=== PATIENT | female | born 1950 | race Caucasian/White ===

== ENCOUNTER 2022-04-02 09:47 | Emergency (ER) | payer BC, OTHER ==
[2022-04-02 09:58] VITALS: TEMP 97.2; BMI 32.9
[2022-04-02] MEDS ORDERED: IBUPROFEN 400 MG TABLET (FP) PO ONE ×2 (10:03→10:10)
[2022-04-02] MEDS ORDERED: ACETAMINOPHEN 325 MG TABLET (FP) PO ONE (10:03)
[2022-04-02] MEDS ORDERED: ACETAMINOPHEN 325 MG TABLET (FP) ONE (10:10)
[2022-04-02 10:20] VITALS: BP 156/93; PULSE 68
== END 2022-04-02 11:52 | disposition home or self-care (01) ==
LOC: JER 09:47
DX: M79.605 Pain in left leg (principal)
CPT/HCPCS: 72170-TC-FY; 73562-TC-RT-FY; 73590-TC-RT-FY; 99284-25

== ENCOUNTER 2022-10-02 18:42 | Emergency (ER) | payer OTHER ==
[2022-10-02 20:03] VITALS: TEMP 98.1; BMI 33.0
[2022-10-02] MEDS ORDERED: ACETAMINOPHEN 500 MG TABLET (FP) PO ONE (21:06)
[2022-10-02] MEDS ORDERED: ATENOLOL 50 MG TABLET (FP) PO ONE (21:06)
[2022-10-02] MEDS ORDERED: ACETAMINOPHEN 325 MG TABLET (FP) ONE (21:40)
[2022-10-02] MEDS ORDERED: ATENOLOL 50 MG TABLET (FP) ONE (21:40)
[2022-10-02 22:27] LABS: BASO % 0.7 % (0-2.0); EOS % 1.4 % (0-4.5); HEMATOCRIT 49.4 % (32.4-45.2); HEMOGLOBIN 16.1 GM/dL (10.7-15.3); LYMPH % 12.6 % (8-40); MCH 28.6 pg (25.7-33.7); MCHC 32.5 g/dl (32.0-36.0); MEAN PLT VOLUME 7.4 fl (7.5-11.1); MONO % 5.7 % (3.8-10.2); NEUT % 79.6 % (42.8-82.8); PLATELET COUNT 395 10^3/uL (134-434); RBC 5.61 M/mm3 (3.60-5.2); RDW 14.8 % (11.6-15.6); WHITE BLOOD COUNT 11.2 K/mm3 (4.0-10.0)
[2022-10-02 22:48] LABS: CALCIUM 9.8 mg/dL (8.5-10.1)
[2022-10-02 22:49] LABS: ALBUMIN 3.6 g/dl (3.4-5.0); BLOOD UREA NITROGEN 17.5 mg/dL (7-18)
[2022-10-02 22:52] LABS: CREATININE 1.7 mg/dL (0.55-1.3)
[2022-10-02 22:54] LABS: BILIRUBIN,TOTAL 0.6 mg/dL (0.2-1); TOT PROT 7.1 g/dl (6.4-8.2)
[2022-10-02] MEDS ORDERED: AZITHROMYCIN 250 MG TABLET PO ONE (22:57)
[2022-10-02] MEDS ORDERED: NEOMYCIN/POLYMYXN/HC OTIC SOLUTION 10 ML BOTTLE ONE (22:58)
[2022-10-02] MEDS ORDERED: AZITHROMYCIN 250 MG TABLET ONE (23:01)
[2022-10-02 23:13] VITALS: BP 175/120; PULSE 85; RESP 20
[2022-10-03] MEDS ORDERED: NEOMYCIN/POLYMYXN/HC OTIC SOLUTION 10 ML BOTTLE AS ONE (22:58)
== END 2022-10-02 23:19 | disposition home or self-care (01) ==
LOC: JERFT 18:42 → JER 18:42 → JERFT 23:19
DX: H60.92 Unspecified otitis externa, left ear (principal); H66.92 Otitis media, unspecified, left ear; I10 Essential (primary) hypertension
CPT/HCPCS: 0241U-QW; 36415; 70480-TC; 70486-TC; 71046-TC-FY; 80053; 85025; 99284-25

== ENCOUNTER 2023-06-22 04:14 | Inpatient (IN) | payer OTHER ==
[2023-06-21 11:52] VITALS: BMI 34.4
[2023-06-22 06:58] LABS: INR 0.99 (0.83-1.09); PROTHROMBIN TIME (PATIENT) 11.5 SEC (9.7-13.0)
[2023-06-22] MEDS ORDERED: BUPIVACAINE HCL/PF 0.5% (5MG/ML) 10 ML VIAL ONE (08:07)
[2023-06-22] MEDS ORDERED: LIDOCAINE HCL/PF 2% SDV 5ML VIAL ONE (09:00)
[2023-06-22] MEDS ORDERED: ROCURONIUM BROMIDE 50 MG/5 ML SYRINGE ONE (09:00)
[2023-06-22] MEDS ORDERED: PROPOFOL 20 ML ONE (09:00)
[2023-06-22] MEDS ORDERED: ceFAZolin SODIUM 1 GM VIAL ONE (09:00)
[2023-06-22] MEDS ORDERED: MIDAZOLAM HCL 2 MG/2 ML SINGLE DOSE VIAL ONE (09:01)
[2023-06-22] MEDS ORDERED: ERTAPENEM SODIUM 1 GM VIAL ONE (09:38)
[2023-06-22] MEDS ORDERED: cefOXitin SODIUM 1 GM VIAL (RESTRICTED TO ID) IVPB ONE (09:42)
[2023-06-22] MEDS ORDERED: BUPIVACAINE HCL/PF 0.5% (5MG/ML) 10 ML VIAL IJ ONE ×2 (10:00)
[2023-06-22] MEDS ORDERED: GLYCOPYRROLATE 0.2 MG/1 ML VIAL ONE ×2 (10:03→10:30)
[2023-06-22] MEDS ORDERED: NEOSTIGMINE METHYLSULFATE 0.5 MG/1 ML - 10 ML MDV ONE (10:30)
[2023-06-22] MEDS ORDERED: ACETAMINOPHEN 325 MG TABLET (FP) PO PRN (14:15)
[2023-06-22] MEDS: clonazePAM 0.5 MG TABLET PO PRN ×2 (15:40→21:39)
[2023-06-22] MEDS: ATORVASTATIN CA 20 MG TABLET (FP) PO SCH (21:39)
[2023-06-22] MEDS: DULoxetine HCL 30 MG CAPSULE.DR PO SCH ×2 (21:39→21:43)
[2023-06-22] MEDS ORDERED: ATENOLOL 50 MG TABLET (FP) PO SCH (22:00)
[2023-06-23] MEDS: LEVOTHYROXINE NA 112 MCG TABLET (FP) PO SCH (06:42)
[2023-06-23] MEDS: DULoxetine HCL 30 MG CAPSULE.DR PO SCH ×2 (09:49→21:18)
[2023-06-23] MEDS: LOSARTAN POTASSIUM 50 MG TABLET PO SCH (09:49)
[2023-06-23] MEDS: ASPIRIN 81 MG CHEWABLE TABLETS PO SCH (09:49)
[2023-06-23] MEDS: clonazePAM 0.5 MG TABLET PO PRN (21:17)
[2023-06-23] MEDS: ATORVASTATIN CA 20 MG TABLET (FP) PO SCH (21:17)
[2023-06-24] MEDS: LEVOTHYROXINE NA 112 MCG TABLET (FP) PO SCH (06:07)
[2023-06-24] MEDS: clonazePAM 0.5 MG TABLET PO PRN (09:14)
[2023-06-24] MEDS: ASPIRIN 81 MG CHEWABLE TABLETS PO SCH ×2 (09:14→09:16)
[2023-06-24] MEDS: DULoxetine HCL 30 MG CAPSULE.DR PO SCH ×2 (09:14→21:24)
[2023-06-24] MEDS: LOSARTAN POTASSIUM 50 MG TABLET PO SCH (09:14)
[2023-06-24] MEDS: ATORVASTATIN CA 20 MG TABLET (FP) PO SCH (21:24)
[2023-06-25] MEDS: LEVOTHYROXINE NA 112 MCG TABLET (FP) PO SCH (06:00)
[2023-06-25 08:41] LABS: BASO % 0.8 % (0-2.0); EOS % 2.2 % (0-4.5); HEMATOCRIT 47.7 % (32.4-45.2); LYMPH % 22.7 % (8-40); MCH 29.5 pg (25.7-33.7); MCHC 33.4 g/dl (32.0-36.0); MEAN CELL VOLUME 88.1 fl (80-96); MEAN PLT VOLUME 7.5 fl (7.5-11.1); MONO % 7.6 % (3.8-10.2); NEUT % 66.7 % (42.8-82.8); PLATELET COUNT 380 10^3/uL (134-434); RBC 5.42 M/mm3 (3.60-5.2); RDW 14.8 % (11.6-15.6); WHITE BLOOD COUNT 5.6 K/mm3 (4.0-10.0)
[2023-06-25] MEDS: clonazePAM 0.5 MG TABLET PO PRN (08:58)
[2023-06-25] MEDS: DULoxetine HCL 30 MG CAPSULE.DR PO SCH ×2 (09:00→21:17)
[2023-06-25] MEDS: ASPIRIN 81 MG CHEWABLE TABLETS PO SCH (09:01)
[2023-06-25] MEDS: LOSARTAN POTASSIUM 50 MG TABLET PO SCH (09:01)
[2023-06-25 09:11] LABS: POTASSIUM 4.7 mmol/L (3.5-5.1)
[2023-06-25 09:14] LABS: CALCIUM 9.3 mg/dL (8.5-10.1)
[2023-06-25 09:16] LABS: ALBUMIN 3.4 g/dl (3.4-5.0); BLOOD UREA NITROGEN 27.4 mg/dL (7-18)
[2023-06-25 09:18] LABS: CREATININE 1.5 mg/dL (0.55-1.3)
[2023-06-25 09:19] LABS: BILIRUBIN,TOTAL 0.5 mg/dL (0.2-1)
[2023-06-25 09:20] LABS: TOT PROT 6.4 g/dl (6.4-8.2)
[2023-06-25] MEDS ORDERED: PEG 3350/NA SULF BICARB CL/KCL 4000 ML SOLN.RECON PO ONE (15:47)
[2023-06-25] MEDS: metroNIDAZOLE 250 MG TABLET PO SCH ×2 (16:27→21:18)
[2023-06-25] MEDS ORDERED: clonazePAM 0.5 MG TABLET PO PRN (18:39)
[2023-06-25] MEDS: ATORVASTATIN CA 20 MG TABLET (FP) PO SCH (21:18)
[2023-06-26] MEDS: NEOMYCIN SO4 500 MG TABLET PO SCH ×3 (05:13→10:45)
[2023-06-26] MEDS: metroNIDAZOLE 250 MG TABLET PO SCH ×2 (05:14→13:56)
[2023-06-26] MEDS: LOSARTAN POTASSIUM 50 MG TABLET PO SCH ×2 (05:42→09:14)
[2023-06-26] MEDS: LEVOTHYROXINE NA 112 MCG TABLET (FP) PO SCH (06:39)
[2023-06-26] MEDS ORDERED: SODIUM PHOSPHATE/NA BIPHOS 133 ML ENEMA RC ONE (06:50)
[2023-06-26] MEDS ORDERED: hydrALAZINE HCL 20 MG/ML VIAL IVPUSH PRN ×2 (07:07→20:20)
[2023-06-26] MEDS ORDERED: amLODIPine BESYLATE 5 MG TABLET (FP) PO ONE (08:15)
[2023-06-26] MEDS: ASPIRIN 81 MG CHEWABLE TABLETS PO SCH (09:14)
[2023-06-26] MEDS: DULoxetine HCL 30 MG CAPSULE.DR PO SCH ×2 (09:14→23:26)
[2023-06-26] MEDS ORDERED: cefOXitin SODIUM 2 GM VIAL (RESTRICTED TO ID) IVPB ONE ×3 (14:48→17:33)
[2023-06-26] MEDS ORDERED: BUPIVACAINE HCL/PF 0.25% (2.5MG/ML) 10 ML VIAL IJ ONE ×2 (15:24)
[2023-06-26] MEDS ORDERED: CEFOXITIN SODIUM 2 GM IVPB ONE (16:49)
[2023-06-26] MEDS ORDERED: INDOCYANINE GREEN 25 MG/10 ML VIAL IVPUSH ONE (16:49)
[2023-06-26] MEDS ORDERED: ESMOLOL HCL 100,000 MCG/10 ML VIAL ONE (19:08)
[2023-06-26] MEDS ORDERED: ONDANSETRON 4 MG/2 ML VIAL IVPUSH PRN ×2 (19:45→20:01)
[2023-06-26] MEDS ORDERED: LACTATED RINGERS SOLUTION 1,000 ML IV SCH ×2 (20:15→20:33)
[2023-06-26] MEDS ORDERED: morphine SULFATE 4 MG/ML VIAL IVPUSH PRN (20:20)
[2023-06-26] MEDS: ATORVASTATIN CA 20 MG TABLET (FP) PO SCH (23:27)
[2023-06-27] MEDS: ACETAMINOPHEN 1000 MG/100 ML BAG IVPB SCH ×3 (00:21→14:07)
[2023-06-27] MEDS ORDERED: CEFOXITIN SODIUM 1 GM in DEXTROSE 5%-WATER - 100 ML IVPB SCH (01:00)
[2023-06-27] MEDS: CEFOXITIN SODIUM 1 GM in DEXTROSE 5%-WATER - 100 ML IVPB SCH ×2 (02:00→09:53)
[2023-06-27] MEDS: LEVOTHYROXINE NA 112 MCG TABLET (FP) PO SCH (06:40)
[2023-06-27] MEDS: HEPARIN NA (PORCINE) 5,000 UNITS/ML 1ML VIAL SQ SCH ×3 (06:42→22:31)
[2023-06-27 08:13] LABS: HEMATOCRIT 47.7 % (32.4-45.2); HEMOGLOBIN 15.7 GM/dL (10.7-15.3); MCH 29.4 pg (25.7-33.7); MCHC 32.9 g/dl (32.0-36.0); MEAN CELL VOLUME 89.3 fl (80-96); MEAN PLT VOLUME 7.8 fl (7.5-11.1); PLATELET COUNT 337 10^3/uL (134-434); RBC 5.34 M/mm3 (3.60-5.2); RDW 15.1 % (11.6-15.6); WHITE BLOOD COUNT 15.2 K/mm3 (4.0-10.0)
[2023-06-27 08:21] LABS: CALCIUM 8.8 mg/dL (8.5-10.1)
[2023-06-27 08:22] LABS: ALBUMIN 2.9 g/dl (3.4-5.0); BLOOD UREA NITROGEN 27.5 mg/dL (7-18)
[2023-06-27 08:25] LABS: CREATININE 3.1 mg/dL (0.55-1.3)
[2023-06-27 08:27] LABS: TOT PROT 5.6 g/dl (6.4-8.2)
[2023-06-27 08:37] LABS: BILIRUBIN,TOTAL 0.8 mg/dL (0.2-1)
[2023-06-27] MEDS ORDERED: SODIUM CHLORIDE 500 ML IV STA ×2 (08:59→16:34)
[2023-06-27 09:06] LABS: ANISOCYTOSIS 0; MACROCYTOSIS 0
[2023-06-27] MEDS: ASPIRIN 81 MG CHEWABLE TABLETS PO SCH (09:50)
[2023-06-27] MEDS: LOSARTAN POTASSIUM 50 MG TABLET PO SCH (09:50)
[2023-06-27] MEDS: DULoxetine HCL 30 MG CAPSULE.DR PO SCH ×2 (09:51→22:31)
[2023-06-27] MEDS: oxyCODONE HCL 5 MG TABLET PO PRN ×2 (09:51→18:02)
[2023-06-27] MEDS: SODIUM CHLORIDE 1,000 ML IV SCH (09:54)
[2023-06-27] MEDS: metoPROLOL SUCCINATE 25 MG TAB.SR.24H (FP) PO SCH (13:08)
[2023-06-27 13:42] LABS: EPI CELLS >36 /uL (0-25.1); HYALINE CASTS 2 /uL (0-3.1); URINE APPEARANCE CLOUDY; URINE BACTERIA 82 /uL (0-1359); URINE BILIRUBIN NEGATIVE (NEGATIVE); URINE COLOR YELLOW; URINE GLUCOSE (UA) NEGATIVE (NEGATIVE); URINE KETONE NEGATIVE (NEGATIVE); URINE LEUK ESTERASE 1+ (NEGATIVE); URINE NITRITE NEGATIVE (NEGATIVE); URINE PROTEIN 1+ (NEGATIVE); URINE RBC 73 /uL (0-23.9); URINE UROBILINOGEN 0.2 mg/dL (0.2-1.0); URINE WBC 59 /uL (0-25.8)
[2023-06-27] MEDS: MEROPENEM 500 MG in DEXTROSE 5%-WATER 100 ML IVPB SCH (17:20)
[2023-06-27] MEDS: ATORVASTATIN CA 20 MG TABLET (FP) PO SCH (22:31)
[2023-06-28] MEDS: oxyCODONE HCL 5 MG TABLET PO PRN ×2 (00:01→14:30)
[2023-06-28] MEDS: MEROPENEM 500 MG in DEXTROSE 5%-WATER 100 ML IVPB SCH ×2 (04:13→17:15)
[2023-06-28] MEDS: HEPARIN NA (PORCINE) 5,000 UNITS/ML 1ML VIAL SQ SCH ×3 (05:49→21:39)
[2023-06-28] MEDS: LEVOTHYROXINE NA 112 MCG TABLET (FP) PO SCH (06:10)
[2023-06-28 08:29] LABS: HEMATOCRIT 43.1 % (32.4-45.2); HEMOGLOBIN 14.1 GM/dL (10.7-15.3); MCHC 32.7 g/dl (32.0-36.0); MEAN CELL VOLUME 88.8 fl (80-96); MEAN PLT VOLUME 7.8 fl (7.5-11.1); PLATELET COUNT 312 10^3/uL (134-434); RBC 4.85 M/mm3 (3.60-5.2); RDW 15.2 % (11.6-15.6); WHITE BLOOD COUNT 15.1 K/mm3 (4.0-10.0)
[2023-06-28 08:57] LABS: POTASSIUM 5.3 mmol/L (3.5-5.1)
[2023-06-28 09:06] LABS: CALCIUM 8.3 mg/dL (8.5-10.1)
[2023-06-28 09:07] LABS: ALBUMIN 2.5 g/dl (3.4-5.0)
[2023-06-28 09:09] LABS: CREATININE 2.3 mg/dL (0.55-1.3)
[2023-06-28 09:11] LABS: TOT PROT 5.2 g/dl (6.4-8.2)
[2023-06-28 09:12] LABS: BILIRUBIN,TOTAL 0.8 mg/dL (0.2-1)
[2023-06-28] MEDS ORDERED: ACETAMINOPHEN 500 MG TABLET (FP) PO PRN (10:00)
[2023-06-28 10:04] LABS: ANISOCYTOSIS 0; HELMET CELLS 0; HOWELL-JOLLY BODIES 0; MACROCYTOSIS 0; OVALOCYTE 0; ROULEAU 0; SICKELED CELLS 0; TARGET CELLS 0; TEAR DROP CELLS 0; TOXIC GRANULATION 0
[2023-06-28] MEDS: SODIUM CHLORIDE 1,000 ML IV SCH (10:40)
[2023-06-28] MEDS: LOSARTAN POTASSIUM 50 MG TABLET PO SCH (10:49)
[2023-06-28] MEDS: metoPROLOL SUCCINATE 25 MG TAB.SR.24H (FP) PO SCH (10:50)
[2023-06-28] MEDS: clonazePAM 0.5 MG TABLET PO PRN ×2 (10:50→23:27)
[2023-06-28] MEDS: ASPIRIN 81 MG CHEWABLE TABLETS PO SCH (10:50)
[2023-06-28] MEDS: DULoxetine HCL 30 MG CAPSULE.DR PO SCH ×2 (10:50→21:38)
[2023-06-28] MEDS ORDERED: SIMETHICONE 80 MG TAB.CHEW (FP) PO PRN (11:12)
[2023-06-28] MEDS ORDERED: LOSARTAN POTASSIUM 50 MG TABLET PO SCH (13:48)
[2023-06-28] MEDS: SODIUM CHLORIDE 0.45% 1,000 ML IV SCH (14:38)
[2023-06-28] MEDS: ATORVASTATIN CA 20 MG TABLET (FP) PO SCH (21:39)
[2023-06-29] MEDS: MEROPENEM 500 MG in DEXTROSE 5%-WATER 100 ML IVPB SCH ×2 (05:22→16:03)
[2023-06-29] MEDS: LEVOTHYROXINE NA 112 MCG TABLET (FP) PO SCH (06:45)
[2023-06-29] MEDS: HEPARIN NA (PORCINE) 5,000 UNITS/ML 1ML VIAL SQ SCH ×2 (06:45→13:37)
[2023-06-29] MEDS: oxyCODONE HCL 5 MG TABLET PO PRN (06:54)
[2023-06-29 07:35] LABS: HEMATOCRIT 41.3 % (32.4-45.2); HEMOGLOBIN 12.9 GM/dL (10.7-15.3); MCH 28.5 pg (25.7-33.7); MCHC 31.3 g/dl (32.0-36.0); MEAN PLT VOLUME 8.2 fl (7.5-11.1); PLATELET COUNT 277 10^3/uL (134-434); RBC 4.53 M/mm3 (3.60-5.2); RDW 15.2 % (11.6-15.6); WHITE BLOOD COUNT 11.2 K/mm3 (4.0-10.0)
[2023-06-29 07:54] LABS: POTASSIUM 4.7 mmol/L (3.5-5.1)
[2023-06-29 07:57] LABS: ALBUMIN 2.1 g/dl (3.4-5.0); BLOOD UREA NITROGEN 24.4 mg/dL (7-18); CALCIUM 8.2 mg/dL (8.5-10.1)
[2023-06-29 08:00] LABS: CREATININE 1.9 mg/dL (0.55-1.3)
[2023-06-29 08:02] LABS: TOT PROT 4.7 g/dl (6.4-8.2)
[2023-06-29 09:13] LABS: ANISOCYTOSIS 2+; MACROCYTOSIS 2+
[2023-06-29] MEDS: ASPIRIN 81 MG CHEWABLE TABLETS PO SCH (09:47)
[2023-06-29] MEDS: DULoxetine HCL 30 MG CAPSULE.DR PO SCH ×2 (09:48→21:48)
[2023-06-29] MEDS: metoPROLOL SUCCINATE 25 MG TAB.SR.24H (FP) PO SCH (09:48)
[2023-06-29] MEDS ORDERED: metoPROLOL SUCCINATE 25 MG TAB.SR.24H (FP) PO ONE ×2 (10:05→14:52)
[2023-06-29] MEDS ORDERED: MINERAL OIL ENEMA 133 ML ENEMA RC ONE (11:12)
[2023-06-29] MEDS: ENOXAPARIN NA (PORCINE) 80 MG/0.8 ML DISP.SYRIN SQ SCH (16:03)
[2023-06-29] MEDS: SODIUM CHLORIDE 0.45% 1,000 ML IV SCH (19:26)
[2023-06-29] MEDS: ATORVASTATIN CA 20 MG TABLET (FP) PO SCH (21:48)
[2023-06-30] MEDS: MEROPENEM 500 MG in DEXTROSE 5%-WATER 100 ML IVPB SCH ×2 (05:52→17:13)
[2023-06-30] MEDS: LEVOTHYROXINE NA 112 MCG TABLET (FP) PO SCH (06:24)
[2023-06-30] MEDS ORDERED: metoPROLOL SUCCINATE 25 MG TAB.SR.24H (FP) PO SCH (10:00)
[2023-06-30] MEDS: ENOXAPARIN NA (PORCINE) 80 MG/0.8 ML DISP.SYRIN SQ SCH (10:50)
[2023-06-30] MEDS: ASPIRIN 81 MG CHEWABLE TABLETS PO SCH (10:50)
[2023-06-30] MEDS: DULoxetine HCL 30 MG CAPSULE.DR PO SCH ×2 (10:50→22:59)
[2023-06-30] MEDS: ATORVASTATIN CA 20 MG TABLET (FP) PO SCH (22:59)
[2023-06-30] MEDS: SODIUM CHLORIDE 0.45% 1,000 ML IV SCH (22:59)
[2023-07-01] MEDS: LEVOTHYROXINE NA 112 MCG TABLET (FP) PO SCH (06:46)
[2023-07-01] MEDS: MEROPENEM 500 MG in DEXTROSE 5%-WATER 100 ML IVPB SCH ×2 (06:46→17:35)
[2023-07-01 08:30] LABS: HEMATOCRIT 39.7 % (32.4-45.2); HEMOGLOBIN 13.3 GM/dL (10.7-15.3); MCH 29.4 pg (25.7-33.7); MCHC 33.6 g/dl (32.0-36.0); MEAN CELL VOLUME 87.6 fl (80-96); MEAN PLT VOLUME 8.1 fl (7.5-11.1); PLATELET COUNT 276 10^3/uL (134-434); RBC 4.53 M/mm3 (3.60-5.2); RDW 14.9 % (11.6-15.6); WHITE BLOOD COUNT 10.1 K/mm3 (4.0-10.0)
[2023-07-01 08:56] LABS: POTASSIUM 4.5 mmol/L (3.5-5.1)
[2023-07-01 09:02] LABS: BLOOD UREA NITROGEN 20.8 mg/dL (7-18); CALCIUM 8.6 mg/dL (8.5-10.1)
[2023-07-01 09:03] LABS: ALBUMIN 2.2 g/dl (3.4-5.0)
[2023-07-01 09:06] LABS: BILIRUBIN,TOTAL 0.6 mg/dL (0.2-1); CREATININE 1.3 mg/dL (0.55-1.3)
[2023-07-01 09:56] LABS: ANISOCYTOSIS 0; HELMET CELLS 0; HOWELL-JOLLY BODIES 0; MACROCYTOSIS 0; OVALOCYTE 0; ROULEAU 0; SICKELED CELLS 0; TARGET CELLS 0; TEAR DROP CELLS 0; TOXIC GRANULATION 0
[2023-07-01] MEDS: DULoxetine HCL 30 MG CAPSULE.DR PO SCH ×2 (10:08→21:28)
[2023-07-01] MEDS: ENOXAPARIN NA (PORCINE) 80 MG/0.8 ML DISP.SYRIN SQ SCH (10:08)
[2023-07-01] MEDS: ASPIRIN 81 MG CHEWABLE TABLETS PO SCH (10:08)
[2023-07-01] MEDS: SODIUM CHLORIDE 0.45% 1,000 ML IV SCH (17:35)
[2023-07-01] MEDS: ATORVASTATIN CA 20 MG TABLET (FP) PO SCH (21:28)
[2023-07-02] MEDS: LEVOTHYROXINE NA 112 MCG TABLET (FP) PO SCH (06:03)
[2023-07-02] MEDS: MEROPENEM 500 MG in DEXTROSE 5%-WATER 100 ML IVPB SCH ×2 (06:04→16:32)
[2023-07-02] MEDS: DULoxetine HCL 30 MG CAPSULE.DR PO SCH ×2 (09:28→21:34)
[2023-07-02] MEDS: ENOXAPARIN NA (PORCINE) 80 MG/0.8 ML DISP.SYRIN SQ SCH ×3 (09:29→21:49)
[2023-07-02] MEDS: ASPIRIN 81 MG CHEWABLE TABLETS PO SCH (09:29)
[2023-07-02] MEDS ORDERED: SODIUM CHLORIDE 500 ML IV STA (11:46)
[2023-07-02] MEDS ORDERED: SODIUM CHLORIDE 250 ML IV STA (11:48)
[2023-07-02] MEDS: SODIUM CHLORIDE 1,000 ML IV SCH (12:15)
[2023-07-02] MEDS: ATORVASTATIN CA 20 MG TABLET (FP) PO SCH (21:34)
[2023-07-03] MEDS: SODIUM CHLORIDE 1,000 ML IV SCH ×2 (02:20→19:06)
[2023-07-03] MEDS: MEROPENEM 500 MG in DEXTROSE 5%-WATER 100 ML IVPB SCH ×2 (05:15→17:03)
[2023-07-03] MEDS: LEVOTHYROXINE NA 112 MCG TABLET (FP) PO SCH (06:11)
[2023-07-03 07:45] LABS: HEMATOCRIT 38.4 % (32.4-45.2); HEMOGLOBIN 12.5 GM/dL (10.7-15.3); MCHC 32.6 g/dl (32.0-36.0); MEAN CELL VOLUME 89.2 fl (80-96); PLATELET COUNT 303 10^3/uL (134-434); RDW 14.9 % (11.6-15.6); WHITE BLOOD COUNT 10.4 K/mm3 (4.0-10.0)
[2023-07-03 08:12] LABS: POTASSIUM 4.9 mmol/L (3.5-5.1)
[2023-07-03 08:33] LABS: BLOOD UREA NITROGEN 14.4 mg/dL (7-18); CALCIUM 8.6 mg/dL (8.5-10.1)
[2023-07-03 08:36] LABS: CREATININE 1.1 mg/dL (0.55-1.3)
[2023-07-03 08:38] LABS: BILIRUBIN,TOTAL 0.6 mg/dL (0.2-1); TOT PROT 4.9 g/dl (6.4-8.2)
[2023-07-03] MEDS: ENOXAPARIN NA (PORCINE) 80 MG/0.8 ML DISP.SYRIN SQ SCH (09:42)
[2023-07-03] MEDS: DULoxetine HCL 30 MG CAPSULE.DR PO SCH ×2 (09:42→21:09)
[2023-07-03] MEDS: LOSARTAN POTASSIUM 50 MG TABLET PO SCH (09:42)
[2023-07-03] MEDS: ASPIRIN 81 MG CHEWABLE TABLETS PO SCH (09:42)
[2023-07-03] MEDS: ATORVASTATIN CA 20 MG TABLET (FP) PO SCH (21:08)
[2023-07-04] MEDS: MEROPENEM 500 MG in DEXTROSE 5%-WATER 100 ML IVPB SCH (04:21)
[2023-07-04] MEDS: LEVOTHYROXINE NA 112 MCG TABLET (FP) PO SCH (06:06)
[2023-07-04 08:36] VITALS: BP 173/86; PULSE 78; RESP 18; TEMP 98.5
[2023-07-04] MEDS: DULoxetine HCL 30 MG CAPSULE.DR PO SCH (09:28)
[2023-07-04] MEDS: ASPIRIN 81 MG CHEWABLE TABLETS PO SCH (09:28)
[2023-07-04] MEDS: LOSARTAN POTASSIUM 50 MG TABLET PO SCH (09:28)
== END 2023-07-04 14:05 | disposition home health service (06) | DRG 330 ==
LOC: J2C 04:14 → J4W 13:29
PROVIDERS: ADMIT Family Medicine; ATTEND Family Medicine
PROC: 0DBF4ZZ Excision of Right Large Intestine, Percutaneous Endoscopic Approach (ICD-10-PCS; principal; 2023-06-22 09:00)
PROC: 0WJP4ZZ Inspection of Gastrointestinal Tract, Percutaneous Endoscopic Approach (ICD-10-PCS; 2023-06-26)
DX: C18.2 Malignant neoplasm of ascending colon (principal); I47.1 Supraventricular tachycardia; N17.9 Acute kidney failure, unspecified; K91.89 Other postprocedural complications and disorders of digestive system; K56.7 Ileus, unspecified; R00.1 Bradycardia, unspecified; E13.9 Other specified diabetes mellitus without complications; I25.10 Atherosclerotic heart disease of native coronary artery without angina pectoris; E86.0 Dehydration; I48.0 Paroxysmal atrial fibrillation; I12.9 Hypertensive chronic kidney disease with stage 1 through stage 4 chronic kidney disease, or unspecified chronic kidney disease; N18.9 Chronic kidney disease, unspecified; F32.A Depression, unspecified; E66.9 Obesity, unspecified; Z68.34 Body mass index [BMI] 34.0-34.9, adult; T44.7X5A Adverse effect of beta-adrenoreceptor antagonists, initial encounter; Y92.230 Patient room in hospital as the place of occurrence of the external cause; Y83.8 Other surgical procedures as the cause of abnormal reaction of the patient, or of later complication, without mention of misadventure at the time of the procedure; Z53.8 Procedure and treatment not carried out for other reasons
CPT/HCPCS: 36415; 71045-TC-FY; 71275-TC; 74018-TC-FY; 80048; 80053; 81003; 82436; 82550; 82570; 82962; 84133; 84300; 84443; 84484; 85025; 85027; 85379; 85610; 86140; 86850; 86900; 86901; 93005; 93010; 93306-TC; 93970-TC; 94010; 94760; 97116-GP; 97162-GP; J1644; Q9967

== ENCOUNTER 2024-05-17 05:09 | Emergency (ER) | payer OTHER ==
[2024-05-17 05:18] VITALS: BP 159/95; PULSE 89; RESP 20; TEMP 97.7; BMI 34.9
[2024-05-17] MEDS ORDERED: ACETAMINOPHEN 325 MG TABLET (FP) ONE (05:55)
[2024-05-17] MEDS: ACETAMINOPHEN 500 MG TABLET (FP) PO ONE (06:03)
== END 2024-05-17 07:25 | disposition home or self-care (01) ==
LOC: JER 05:09
DX: H92.01 Otalgia, right ear (principal)
CPT/HCPCS: 70110-TC-FY; 99283-25

== ENCOUNTER 2024-05-19 11:50 | Emergency (ER) | payer OTHER ==
[2024-05-19 12:07] VITALS: BP 159/100; PULSE 89; RESP 18; TEMP 98; BMI 34.0
== END 2024-05-19 13:30 | disposition home or self-care (01) ==
LOC: JERFT 11:50
DX: H60.92 Unspecified otitis externa, left ear (principal); J06.9 Acute upper respiratory infection, unspecified; R05.9 Cough, unspecified; R09.81 Nasal congestion; H92.01 Otalgia, right ear; Z20.822 Contact with and (suspected) exposure to COVID-19
CPT/HCPCS: 0241U-QW; 99283-25